=== PATIENT | male | born 1955 | race Two or more races ===

== ENCOUNTER → 2016-12-11 | Outpatient (CLI) | payer BC ==
--- NOTE | 2016-12-11 09:22 | RAD ---
Left elbow, 3 views, 12/11/2016: History: Elbow pain, swelling and bruising There is spurring along the tip of the coronoid process of the proximal ulna. There is a faint lucency projected over this region raising the possibility of a small nondisplaced cortical fracture. No major fracture or dislocation is evident. No significant joint effusion is seen. There is mild streaky subcutaneous edema medially. IMPRESSION: 1. Mild spurring arising from the coronoid process of the proximal ulna with a possible associated tiny cortical fracture. 2. Subcutaneous edema medially.
== END | disposition home or self-care (01) ==
LOC: DXRADRC 08:58
PROVIDERS: ATTEND Physician Assistant
DX: M25.522 Pain in left elbow (principal); R60.9 Edema, unspecified
CPT/HCPCS: 73080

== ENCOUNTER 2019-02-21 17:30 | Emergency (ER) | payer BC ==
[~2019-02-21] VITALS: Ht 167.6 cm; Wt 90.7 kg
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
[2019-02-21] MEDS ORDERED: FAMOTIDINE 20 MG/2 ML VIAL IVP ONE (18:00)
[2019-02-21] MEDS ORDERED: ONDANSETRON PF 4 MG/2 ML VIAL. IV ONE (18:00)
[2019-02-21] MEDS ORDERED: diphenhydrAMINE 50 MG/ML VIAL IVP ONE (18:00)
[2019-02-21] MEDS ORDERED: methylPREDNISolone SOD SUCC PF 125 MG/2 ML VIAL. IV ONE (18:00)
[2019-02-21] MEDS ORDERED: RANI-376 PO (18:29)
[2019-02-21 19:00] VITALS: BP 105/74
[2019-02-21] MEDS ORDERED: EPIN0.3A4 IJ (19:00)
== END 2019-02-21 18:56 | disposition home or self-care (01) ==
LOC: ER 17:30
DX: T63.441A Toxic effect of venom of bees, accidental (unintentional), initial encounter (principal); R22.42 Localized swelling, mass and lump, left lower limb; Z88.0 Allergy status to penicillin; Y92.89 Other specified places as the place of occurrence of the external cause
CPT/HCPCS: 96374; 96375; 99284; J1200; J2405; J2930; J3490